=== PATIENT | male | born 1990 | race Caucasian/White ===

== ENCOUNTER 2017-06-02 07:33 | Emergency (ER) | payer BC ==
[~2017-06-02] VITALS: Ht 188 cm; Wt 90.7 kg
--- NOTE | ~2017-06-02 | CR252 ---
[facility] A Service of [facility] RADIOLOGY TEXT RESULTS PATIENT: JESUS STEPHEN LOCATION: SED : 92 UNIT #: [id number] AGE: [address]: Dhruv Bowers MD SEX: M ORDER DR: [id number] [place] [id number] E MR#: [id number] Acc #: [id number] NAME: JESUS STEPHEN : 1990 SEX: M STUDY DATE/TIME: 06/02/2017 7:54 UNIT: SED ROOM: STUDY DESCRIPTION: CR Tibia and Fibula 2 Views Lt Attending Physician: Dhruv Bowers M.D. Ordering Physician: Dhruv Bowers M.D. Primary Care Physician: Anny Ortiz M.D. MEDICAL IMAGING REPORT This report is preliminary unless electronic signature is present. EXAM Left tib-fib series INDICATION Left leg pain and swelling since morning. PROCEDURE Four views of the left tibia and fibula. COMPARISON None. FINDINGS There is a nondisplaced spiral type fracture of the proximal fibular shaft. IMPRESSION Nondisplaced spiral fracture of the proximal fibular shaft. Dictated by... Al Grove M.D. THIS IS AN ELECTRONICALLY VERIFIED REPORT Al Grove M.D. at 06/03/2017 8:14 AM ANDREA/anish TD: 06/02/2017 08:59 JOB #: [id number] MEDICAL IMAGING REPORT [facility] A Service of [facility] RADIOLOGY TEXT RESULTS PATIENT: JESUS STEPHEN LOCATION: SED : 92 UNIT #: [id number] AGE: [address]: Dhruv Bowers MD SEX: M ORDER DR: Page 1 of 1
--- NOTE | ~2017-06-02 | CR20 ---
[facility] A Service of [facility] RADIOLOGY TEXT RESULTS PATIENT: JESUS STEPHEN LOCATION: SED : 92 UNIT #: [id number] AGE: [address]: Dhruv Bowers MD SEX: M ORDER DR: [id number] [place] [id number] E MR#: [id number] Acc #: [id number] NAME: JESUS STEPHEN : 1990 SEX: M STUDY DATE/TIME: 06/02/2017 7:54 UNIT: SED ROOM: STUDY DESCRIPTION: CR Ankle Min 3 Views Lt Attending Physician: Dhruv Bowers M.D. Ordering Physician: Dhruv Bowers M.D. Primary Care Physician: Anny Ortiz M.D. MEDICAL IMAGING REPORT This report is preliminary unless electronic signature is present. EXAM Left ankle series INDICATION Left leg and ankle pain since morning after a fall. PROCEDURE Three views of the left ankle. COMPARISON None. FINDINGS No fracture or dislocation. IMPRESSION No acute findings. Dictated by... Al Grove M.D. THIS IS AN ELECTRONICALLY VERIFIED REPORT Al Grove M.D. at 06/03/2017 8:14 AM ANDREA/anish TD: 06/02/2017 09:01 JOB #: [id number] MEDICAL IMAGING REPORT Page 1 of 1
[~2017-06-02 07:33] MED LIST: FLEXERIL10 MG PO; LORTAB 5/500 TA1 TA2 PO
[2017-06-02] MEDS ORDERED: NO MEDICATIONS (07:39)
== END 2017-06-02 09:38 | disposition home or self-care (01) ==
LOC: SED 07:33
DX: S82.402A Unspecified fracture of shaft of left fibula, initial encounter for closed fracture (principal); X58.XXXA Exposure to other specified factors, initial encounter; Y92.830 Public park as the place of occurrence of the external cause
CPT/HCPCS: 29515; 73590; 73610; 99283